=== PATIENT | female | born 1965 | race Caucasian/White ===

== ENCOUNTER 2016-03-01 10:01 | Inpatient (IN) ==
[2016-03-01] MEDS ORDERED: Ondansetron 4 MG/2 ML VIAL IVP PRN (15:04)
[2016-03-01] MEDS ORDERED: Naloxone 0.4 MG/ML INJ IVP PRN (15:04)
[2016-03-01] MEDS ORDERED: Polyethylene Glycol 3350 255 GM POWDER PO ONE (15:18)
[2016-03-01] MEDS ORDERED: *HR* LORazepam 2 MG/ML VIAL IVP PRN (15:19)
--- NOTE | 2016-03-01 15:28 | General Surg History&Physical ---
Date of Encounter: 03/01/16 Time of Encounter: 15:00 Assessment and Plan (1) Diverticulitis large intestine Current Visit: Yes Status: Acute The assessment and plan as outlined above was discussed with the patient and/or family members who expressed understanding and agreement. All questions were answered. CT scan with PO/IV contrast (abdomen/pelvis) Clear liquids IV antibiotics IV fluids Supportive care Check labs today Qualifiers: Diverticulitis bleeding: without bleeding Diverticulitis complication: without perforation or abscess Qualified Code(s): K57.32 - Diverticulitis of large intestine without perforation or abscess without bleeding (2) Hypertension Current Visit: Yes Status: Chronic The assessment and plan as outlined above was discussed with the patient and/or family members who expressed understanding and agreement. All questions were answered. Resume home regimen Will monitor and adjust as necessary Qualifiers: Hypertension type: essential hypertension Qualified Code(s): I10 - Essential (primary) hypertension (3) Anxiety Current Visit: Yes Status: Chronic The assessment and plan as outlined above was discussed with the patient and/or family members who expressed understanding and agreement. All questions were answered. Ativan as needed for anxiety supportive care (4) DVT prophylaxis Current Visit: Yes Status: Acute The assessment and plan as outlined above was discussed with the patient and/or family members who expressed understanding and agreement. All questions were answered. heparin 5,000 units SQ twice daily for DVT prophylaxis History of Present Illness Chief complaint: LLQ pain HPI: Ms. Gambino is a 50 year old female presented to the outpatient surgical office for a consultation with Dr. Joselito dumont. She reports LLQ abdominal pain. She states that this has been an intermittent issue for her for at least the past year. She reports greater than 5 episodes in 1 year and states that the current episode has been going on for at least 1 week. Her previous episode of LLQ pain was in December. She states that she took cipro and flagyl and that this did help her pain. She reports fevers/chills. She states that the pain is a 12 on a 0-10 pain scale. She has had a CT scan complete at [facility], which showed evidence of diverticulosis in the past. She denies any weight loss. She typically has a bowel movement daily but states she has been unable to have a bowel movement today. Admits to diarrhea the past few days without melena or hematochezia. Denies any nausea/vomiting. Denies any difficulty with urination. Denies any shortness of breath or chest pain. We will admit the patient for further work-up and evaluation. Past Med Surg Social Fam HX - Past Medical History Source: patient Medical history: cancer (skin- BCC on left thigh), hypertension, migraine, other (IBS, cervical stenosis) Psychiatric history: anxiety - Past Surgical History Surgical History: , orthopedic, other (right knee scope), other (C- section, BCC removed from left thigh) - Social History Smoking Status: Current every day smoker Packs per day: 1 Smokeless Tobacco Status: Yes Alcohol use: none Drug use: none Occupational status: employed Current living situation: Home - Independent Activity Level: Independent ambulation - Family History Mother Age at : 55 Cause of : leukemia Hx Family Cardiac Disorders: Yes Hx Family Cancer: Yes Review of Systems All systems PM: reviewed and no additional remarkable complaints except as stated (in the HPI) All systems PM: A 10-system review of systems was performed and is negative for pertinent findings except as documented above in the HPI. General Surgery Exam Initial Vital Signs Temp Pulse Resp BP Pulse Ox 98.1 F 72 14 147/89 97 03/01/16 14:55 03/01/16 14:55 03/01/16 14:55 03/01/16 14:55 03/01/16 14:55 - General physical appearance well developed, well nourished, no distress, moderate pain - Eyes normal ocular movement - ENT normal mucosa, atraumatic, normocephalic - Neck trachea midline - Respiratory normal expansion, normal respiratory effort, clear to auscultation - Cardiovascular Cardiovascular exam: Present: RRR, 15, 16 - Abdomen Abdomen general surgery: Present: bowel sounds present, soft, tender Abdominal Tenderness: Present: LLQ - Integumentary Integumentary general surgery: Present: warm and dry, no abnormal pigmentation - Neurologic Present: CN 2-12 grossly intact - Musculoskeletal Present: normal gait, normal posture - Psychiatric Psychiatric general surgery: Present: A&Ox3 Results - Labs All other labs normal. - Attending Attestation I examined this patient and my medical decision-making was reviewed with the SPEECH PATHOLOGY SUPERVISOR/PA/Advanced Practice Nurse/Resident Physician. I agree with the documented findings, disposition and treatment plan as described except to the extent set forth below.
[2016-03-01 15:57] LABS: Basophils # 0.1 K/mcL (0.0-0.2); Basophils % 0.8 %; Eosinophils # 0.1 K/mcL (0.0-0.6); Eosinophils % 1.3 %; Hematocrit 42.3 % (35.3-44.9); Immature Granulocytes % 0.5 % (0-4); Lymphocytes # 2.6 K/mcL (0.6-4.6); Lymphocytes % 33.4 %; Mean Corpuscular HGB Conc 33.1 g/dL (31.6-35.5); Mean Corpuscular Hemoglobin 30.4 pg (28.0-33.3); Mean Corpuscular Volume 91.8 fL (83.0-100.0); Monocytes # 0.6 K/mcL (0.0-1.3); Monocytes % 7.6 %; Neutrophils # 4.3 K/mcL (1.6-8.9); Platelet Count 367 K/mcL (140-400); Red Blood Count 4.61 M/mcL (3.82-4.97); Red Cell Distribution Width 13.3 % (11.5-14.5); Segmented Neutrophils % 56.4 %
[2016-03-01] MEDS: *HR* HYDROmorphone (PF) 1 MG/ML SYRINGE IVP PRN ×2 (15:57→20:41)
[2016-03-01] MEDS: 0.9 % Sodium Chloride 1,000 ML IVC SCH (15:58)
[2016-03-01] MEDS: Piperacillin/Tazobactam 3.375 GM in D5% in Water (Mini-Bag+) 100 ML IVPB SCH ×2 (15:59→23:50)
[2016-03-01 16:14] LABS: BUN/Creatinine Ratio 18 (6-26); Blood Urea Nitrogen 15 mg/dL (7-20); Carbon Dioxide 20 mEq/L (19-29); Chloride 110 mEq/L (98-109); Glucose 91 mg/dL (70-99); Osmolality,Calculated 284 (280-300); Potassium 4.4 mEq/L (3.5-4.5); Sodium 137 mEq/L (136-145); eGFR For African Americans > 60 (> 60); eGFR For Non-African Americans > 60 (> 60)
[2016-03-01] MEDS: Lisinopril 20 MG TABLET PO SCH ×2 (18:38→18:42)
[2016-03-01] MEDS: *HR* Heparin 5,000 UNIT/ML VIAL SQ SCH (18:39)
[2016-03-02] MEDS: *HR* Heparin 5,000 UNIT/ML VIAL SQ SCH (05:04)
[2016-03-02 07:11] VITALS: BP 108/61
[2016-03-02] MEDS: 0.9 % Sodium Chloride 1,000 ML IVC SCH (07:18)
[2016-03-02] MEDS: Lisinopril 20 MG TABLET PO SCH (07:41)
[2016-03-02] MEDS ORDERED: Pantoprazole 40 MG VIAL IVP SCH (09:00)
--- NOTE | 2016-03-02 10:08 | General Surgery Progress Note ---
Date of Encounter: 03/02/16 Time of Encounter: 09:45 - Assessment and Plan (1) Diverticulitis large intestine Current Visit: Yes Status: Acute Clear liquid diet Bowel prep today NPO after midnight Plan for Robotic assisted sigmoid resection with Dr. Yee 03/03/16 Supportive care and pain control Qualifiers: Diverticulitis bleeding: without bleeding Diverticulitis complication: without perforation or abscess Qualified Code(s): K57.32 - Diverticulitis of large intestine without perforation or abscess without bleeding (2) Hypertension Current Visit: Yes Status: Chronic controlled and normotensive continue home regimen Qualifiers: Hypertension type: essential hypertension Qualified Code(s): I10 - Essential (primary) hypertension (3) Anxiety Current Visit: Yes Status: Chronic Ativan prn for anxiety (4) DVT prophylaxis Current Visit: Yes Status: Acute heparin 5,000 units SQ twice daily for DVT prophylaxis Subjective Patient reports: still having pain, pain is less, tolerating liquids well, voiding w/o difficulty, flatus, bowel movement, afebrile Objective Vital Signs - Last 8 Hours Temp Pulse Resp BP Pulse Ox 03/02/16 07:00 97.9 F 75 18 108/61 97 03/02/16 04:23 98.2 F 72 16 105/69 96 Intake and Output 03/01/16 03/02/16 03/02/16 23:59 07:59 15:59 Intake Total 168 / 168 220 / 220 120 / 120 Output Total 550 / 550 600 / 600 Balance -382 / -382 -380 / -380 120 / 120 Intake: IV Fluids 168 / 168 100 / 100 0.9 % Sodium Chloride 1, 68 / 68 000 ML @ 75 mls/hr IVC . [id number] ISABELLA Rx#: [id number] Zosyn 3.375 GM In 100 / 100 100 / 100 Dextrose 5% (Minibag+) 100 ML 100 ML @ 25 mls/hr IVPB Q8HR ISABELLA Rx#: [id number] Oral 0 / 0 120 / 120 120 / 120 Output: Urine 550 / 550 600 / 600 - General physical appearance well developed, well nourished, no distress - Eyes normal ocular movement - ENT normal mucosa, atraumatic, normocephalic - Neck Neck exam: trachea midline - Respiratory normal expansion, normal respiratory effort, clear to auscultation - Cardiovascular Cardiovascular exam: Present: RRR - Abdomen Abdomen: Present: bowel sounds present, soft, tender (mildly) Abdominal Tenderness: LLQ, suprapubic - Integumentary no rash, no growths - Neurologic CN 2-12 grossly intact - Musculoskeletal normal gait, normal posture - Psychiatric oriented to time, oriented to person, oriented to place, speech is normal, memory intact - Labs 03/01/16 15:42 03/01/16 15:42 Diabetes panel 03/01/16 Range/Units 15:42 Sodium 137 (136-145) mEq/L Potassium 4.4 (3.5-4.5) mEq/L Chloride 110 H (98-109) mEq/L Carbon Dioxide 20 (19-29) mEq/L BUN 15 (7-20) mg/dL Creatinine 0.84 (0.57-1.11) mg/dL Glucose 91 (70-99) mg/dL Calcium 9.0 (8.6-10.8) mg/dL Calcium panel 03/01/16 Range/Units 15:42 Calcium 9.0 (8.6-10.8) mg/dL Pituitary panel 03/01/16 Range/Units 15:42 Sodium 137 (136-145) mEq/L Potassium 4.4 (3.5-4.5) mEq/L Chloride 110 H (98-109) mEq/L Carbon Dioxide 20 (19-29) mEq/L BUN 15 (7-20) mg/dL Creatinine 0.84 (0.57-1.11) mg/dL Glucose 91 (70-99) mg/dL Calcium 9.0 (8.6-10.8) mg/dL Adrenal panel 03/01/16 Range/Units 15:42 Sodium 137 (136-145) mEq/L Potassium 4.4 (3.5-4.5) mEq/L Chloride 110 H (98-109) mEq/L Carbon Dioxide 20 (19-29) mEq/L BUN 15 (7-20) mg/dL Creatinine 0.84 (0.57-1.11) mg/dL Glucose 91 (70-99) mg/dL Calcium 9.0 (8.6-10.8) mg/dL Consult Discharge Plan - Plan Referrals: Liza Bettencourt MD [Primary Care Provider] - - Attending Attestation I examined this patient and my medical decision-making was reviewed with the AIRLINE TICKET AGENT/PA/Advanced Practice Nurse/Resident Physician. I agree with the documented findings, disposition and treatment plan as described except to the extent set forth below.
--- NOTE | 2016-03-10 07:40 | Event Note ---
Date of Encounter: 03/02/16 Time of Encounter: 14:00 Pt removed her IV and left without signing any AMA papers.
== END 2016-03-02 11:20 | disposition left against medical advice (07) | DRG 392 ==
LOC: 3ANU
PROVIDERS: ADMIT Surgery; ATTEND Surgery

== ENCOUNTER 2016-03-05 11:37 | Inpatient (IN) ==
[2016-03-05] MEDS ORDERED: cefOXitin 2,000 MG in D5% in Water (Mini-Bag+) 100 ML IVPB ONE (12:16)
[2016-03-05] MEDS ORDERED: Albuterol 2.5 MG/3 ML NEBULIZER IH ONE (12:16)
[2016-03-05] MEDS ORDERED: Ringers Solution, Lactated 1,000 ML IVC SCH (12:30)
[2016-03-05] MEDS ORDERED: Metoclopramide 10 MG/2 ML VIAL IVP ONE (12:43)
[2016-03-05] MEDS ORDERED: *HR* HYDROmorphone (PF) 1 MG/ML SYRINGE IVP PRN ×2 (12:43→19:36)
[2016-03-05] MEDS ORDERED: *HR* Promethazine 25 MG/ML VIAL IVP PRN (12:43)
[2016-03-05] MEDS ORDERED: *HR* Labetalol 100 MG/20 ML MDV IVP PRN (12:43)
[2016-03-05] MEDS ORDERED: Famotidine 20 MG/2 ML VIAL IVP ONE (12:43)
[2016-03-05] MEDS ORDERED: Acetaminophen IV 1,000 MG/100 ML INFUS..BTL IVPB ONE (12:45)
[2016-03-05] MEDS ORDERED: Gabapentin 300 MG CAPSULE PO STA ×2 (12:45)
[2016-03-05] MEDS ORDERED: Lidocaine -MPF 2% 2 ML VIAL ONE (12:48)
[2016-03-05] MEDS ORDERED: *HR* Succinylcholine 200 MG/10 ML VIAL IVP ONE (12:48)
[2016-03-05] MEDS ORDERED: *HR* Propofol 200 MG/20 ML VIAL IVP ONE (12:48)
--- NOTE | 2016-03-05 12:48 | Anesthesia Evaluation PreOp ---
Date of Encounter: 03/05/16 Time of Encounter: 12:46 - Past History Planned Operation: Robotic Colonic/Sigmoid resection Cardiac History: HTN (maintained on Lisinopril, metoprolol) Pulmonary History: Smoker ( < 1ppd x 30yrs) PARTS COUNTERMAN History: Other (Anxiety/depression maintained on Xanax. 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 Cervical HNP C4-5) Other Medical History: Denies Any Significant HX, Renal (hx of kidney stones), GERD (maintained on Zantac, Bentyl. Hx of diverticulitis), Other (BAsal Cell Ca L-thigh) Anesthesia History: No Prior Anesthetic Complications, Past Anesthesia (R-knee scope, , BCC removed from outer L thigh), Problems (PONV) Alcohol Use: none Drug use: none Medications and Allergies Alprazolam [Xanax 0.5 MG Tablet] 0.5 mg PO TID PRN 03/01/16 [History] Dicyclomine HCl [Bentyl] 20 mg PO QID 03/01/16 [History] Gabapentin [Neurontin] 600 mg PO QID 03/01/16 [History] Lisinopril [Zestril] 20 mg PO QPM 03/01/16 [History] Metoprolol [Lopressor] 25 mg PO TID 03/01/16 [History] Oxycodone HCl/Acetaminophen [Percocet 10-325 mg Tablet] 1 tab PO BID PRN [History] Eletriptan HBr [Relpax] 40 mg PO DAILY PRN 03/05/16 [History] Ranitidine HCl [Zantac] 150 mg PO BID 03/05/16 [History] Allergies acetaminophen [From Vicodin] Adverse Reaction (Verified 03/05/16 12:31) Nausea hydrocodone [From Vicodin] Adverse Reaction (Verified 03/05/16 12:31) Nausea - Meds/Allergy Pre-op Review Medications Reviewed: Yes Allergies Reviewed: Yes Beta Blockers on Current Med List: Yes (Metoprolol) If Beta Blockers taken, Date/Time (Last Dose taken): 03/05/16 @ 0800 Anesthesia Results - Labs Laboratory Tests 03/01/16 03/01/16 15:42 15:42 WBC 7.7 Hgb 14.0 Hct 42.3 Plt Count 367 Sodium 137 Potassium 4.4 Chloride 110 H Carbon Dioxide 20 BUN 15 Creatinine 0.84 Est GFR (Non-Af Amer) > 60 - Imaging EKG: image reviewed (67bpm SR,) Anesthesia Exam O2 Sat Height 1.65 m Height 1.65 m Height 1.65 m Weight 87.09 kg Weight 87.09 kg Weight 87.09 kg O2 Sat by Pulse Oximetry 97 O2 Sat by Pulse Oximetry 97 Vital Signs Temp Pulse Resp BP Pulse Ox 98.8 F 67 18 121/73 97 03/05/16 12:04 03/05/16 12:04 03/05/16 12:04 03/05/16 12:04 03/05/16 12:04 Height: 5'5" Weight: 199# NPO (# of Hours): MNOc - HEENT Pupil (Motor): Pupils equal, EOMI Teeth: Normal (permanent partial that "does not come out") Oral Opening: Greater than 3 - PARTS COUNTERMAN LOC: Oriented PARTS COUNTERMAN Motor: Deficit RUE (RSD manifesting as weakness & pain), Deficit RLE PARTS COUNTERMAN Sensory: Deficit: RUE (RSD manifesting as weakness & pain), RLE - Cardiac Rhythm: Regular Murmur: None - Pulmonary Breath Sounds: bilateral Clear Respiratory Effort: Symmetrical Anesthesia Assess/Plan ASA Score: 3 (Smoker, Chronic Pain, Obesity, HTN) Modified Wells Scale for Level of Consciousness: Cooperative, oriented, and tranquil Anesthetic Plan: General Monitoring Plan: Standard Monitors Recovery Plan: PACU Anes Supervising Prov Stmt: Pt seen/evaluated, R&B Discussed, questions answered and consent obtained.Carole Calix MD
[2016-03-05] MEDS ORDERED: *HR* Midazolam HCl 2 MG/2 ML VIAL ONE (12:49)
[2016-03-05] MEDS ORDERED: *HR* FentaNYL (PF) 100 MCG/2 ML VIAL ONE (12:49)
[2016-03-05] MEDS ORDERED: *HR* Rocuronium Bromide 50 MG/5 ML VIAL ONE (12:52)
[2016-03-05] MEDS ORDERED: Lidocaine -MPF 4% 5 ML AMPUL ONE (12:53)
[2016-03-05] MEDS ORDERED: Scopolamine Patch 1.5 MG PATCH.TD72 TD STA (13:02)
[2016-03-05] MEDS ORDERED: CloNIDine Patch 0.1 MG PATCH (WEEKLY) TD SCH (13:15)
--- NOTE | 2016-03-05 13:39 | History & Physical Report ---
Date of Encounter: 03/05/16 Time of Encounter: 13:38 24 Hour HP Update - Instructions Instructions: If the History and Physical is less than 30 days old and was completed prior to A.M. admission and or procedure and has NOT been updated on calendar day of procedure please complete this update prior to performing procedure. - Update Patient reports changes in Medical Condition: No Changes in assessment/condition: No Changes in Medication: No Preop tests/diagnostics Reviewed: Yes Surgery Remains Indicated: Yes Consent for Planned Operative Procedure(s) Verified: Yes - Pre-Operative Checklist Preoperative Checklist Indicated: Yes Prophylactic Antibiotic Ordered: Yes Home Medications Include Beta Marian: No
[2016-03-05] MEDS ORDERED: Neostigmine Methylsulfate 3 MG/3 ML SYRINGE ONE (15:27)
[2016-03-05] MEDS ORDERED: *HR* HYDROmorphone 2 MG/ML SYRINGE ONE (16:14)
[2016-03-05] MEDS ORDERED: Ondansetron 4 MG/2 ML VIAL ONE (16:14)
--- NOTE | 2016-03-05 16:34 | Operative Note ---
Date of procedure: 03/05/16 Pre-op diagnosis: Chronic Diverticulitis Post-op diagnosis: same Procedure: Robotic sigmoid resection Anesthesia: BRAD Surgeon: Klever Yee Estimated blood loss (cc): 25 Specimen: Sigmoid colon Condition: stable Disposition: same day Procedure in Detail: After informed consent, patient taken operating room placed supine position. After adequate sedation anesthesia patient was placed in a lithotomy position. After proper timeout a 12 mm cannula site was placed right superior to the umbilicus. Pneumoperitoneum was greater. A 13 mm cannula was placed in right lower quadrant. 5 mm camera was placed in the right upper quadrant. An 8 mm cannula was placed in subxiphoid region followed by another 8 mm in the left lower quadrant. Patient was placed in a headdown position. The robot was docked over the patient's left hip. Small bowel swept out of the pelvis. Rectosigmoid colon was then grasped and retracted cephalad. The peritoneum was then scored level of the sacral promontory. The left ureter was identified and kept on harm's way. The inferior mesenteric artery was then taken with a vessel sealer. The lateral rectosigmoid stalks were taken down the vessel sealer. The dissection was carried out down to approximate 4 cm above the pelvic floor. Rectosigmoid colon was dissected free from the retro-pubic tubercle region. Once it was freed a 45 mm robotic Endo staplers fired across the rectum. Once it was retracted and area was demarcated on the sigmoid colon for transection. Indocyanine green was infused and we had excellent perfusion. A counterincision was made in the suprapubic region. Dissection carried down the anterior rectus sheath. The rectus muscles were then divided in the midline with Sveta clamp. Once they were split the rectosigmoid colon was delivered. Anil bowel clamps are used to place across the colon proximal and distal and transected. Allis clamps are placed on the bowel and then a pursestring suture device placed on the colon. 3-0 Prolene suture was passed. A pursestring sutures and created and a 29 mm EEA anvil was placed. Suture was tied and secured. Colon was then placed back in the pelvis. The stapler was passed through the anal canal and to the rectal stump and then the spear was placed through the staple line. The anvil was then connected secured and fired. There were 2 excellent donuts. A leak test revealed no leak. At that point the procedure was terminated. All incisions are closed with 0 Vicryl suture and 4-0 Vicryl suture. Marcaine was inserted in the Pfannenstiel incision. She tolerated the procedure well.
[2016-03-05] MEDS ORDERED: Naloxone 0.4 MG/ML INJ IVP PRN ×2 (16:36→19:36)
[2016-03-05] MEDS ORDERED: *HR* Morphine 30 MG/ 30 ML PCA IVC PRN (16:37)
--- NOTE | 2016-03-05 17:55 | Anesthesia Evaluation Post Op ---
Date of Encounter: 03/05/16 Time of Encounter: 17:53 - Vital Signs Vital Signs: Vital Signs/O2 Sat, Most Current Temp Pulse Resp BP Pulse Ox 97.0 F L 75 16 116/69 16 L 03/05/16 17:26 03/05/16 17:46 03/05/16 17:46 03/05/16 17:46 03/05/16 17:46 - Lungs Lungs: Clear Ascult./Percussion - Airway Airway: Non-obstructed - Cardiovascular Regular Rate (Patient spontaneously going in and out of bigeminy. Likely due to anesthetic. Ordered telemetry bed for observation. Dr Guevara notified.) - Mental Status Mental Status: Asleep with brisk response to light stimulation - Pain Pain Scale: 3 Pain Scale used: Numeric (1 - 10) - Nausea Vomiting Nausea Vomiting: Not Present - Hydration Hydration: NPO, Has not voided - Discharge PostOp Status: Transfer Patient to floor
[2016-03-05] MEDS ORDERED: ALPRAZolam 0.5 MG TABLET PO PRN (19:36)
[2016-03-05] MEDS ORDERED: (Eletriptan Hbr [Relpax] 40 MG) PO PRN (19:36)
[2016-03-05] MEDS ORDERED: *HR* OxyCODONE/APAP 5/325 TABLET PO PRN (19:36)
[2016-03-05] MEDS ORDERED: Acetaminophen 325 MG TABLET PO PRN (19:55)
[2016-03-06] MEDS: cefOXitin 2,000 MG in D5% in Water (Mini-Bag+) 100 ML IVPB SCH ×2 (00:21→07:47)
[2016-03-06 05:22] LABS: Basophils % 0.2 %; Hematocrit 37.6 % (35.3-44.9); Hemoglobin 12.5 g/dL (11.5-15.4); Immature Granulocytes % 0.5 % (0-4); Lymphocytes # 1.2 K/mcL (0.6-4.6); Lymphocytes % 10.8 %; Mean Corpuscular HGB Conc 33.2 g/dL (31.6-35.5); Mean Corpuscular Hemoglobin 30.5 pg (28.0-33.3); Mean Corpuscular Volume 91.7 fL (83.0-100.0); Monocytes # 0.8 K/mcL (0.0-1.3); Platelet Count 322 K/mcL (140-400); Red Cell Distribution Width 13.2 % (11.5-14.5); Segmented Neutrophils % 81.5 %
[2016-03-06 05:35] LABS: BUN/Creatinine Ratio 9 (6-26); Blood Urea Nitrogen 7 mg/dL (7-20); Calcium 8.5 mg/dL (8.6-10.8); Carbon Dioxide 19 mEq/L (19-29); Chloride 111 mEq/L (98-109); Glucose 134 mg/dL (70-99); Osmolality,Calculated 282 (280-300); Potassium 4.2 mEq/L (3.5-4.5); Sodium 136 mEq/L (136-145); eGFR For African Americans > 60 (> 60); eGFR For Non-African Americans > 60 (> 60)
--- NOTE | 2016-03-06 13:17 | General Surgery Progress Note ---
<Lisa Moffett - Last Filed: 03/06/16 13:13> Date of Encounter: 03/06/16 Time of Encounter: 13:13 - Assessment and Plan (1) S/P laparoscopic-assisted sigmoidectomy Current Visit: Yes Status: Acute POD #1 robotic assisted sigmoid resection due to chronic diverticulitis with Dr. Yee clear liquid diet pain control supportive care encourage ambulation (2) Hypertension Current Visit: No Status: Chronic stable continue home Zestril and Lopressor Qualifiers: Hypertension type: essential hypertension Qualified Code(s): I10 - Essential (primary) hypertension (3) Anxiety Current Visit: No Status: Chronic continue home Xanax (4) DVT prophylaxis Current Visit: No Status: Acute SCDs to bilateral LE when in bed Subjective Patient reports: still having pain, voiding w/o difficulty, no flatus, no bowel movement, afebrile, other (belching) Objective Vital Signs - Last 8 Hours Temp Pulse Resp BP Pulse Ox 03/06/16 10:45 98.1 F 77 16 145/87 97 03/06/16 07:22 97.8 F 86 18 126/78 97 Intake and Output 03/05/16 03/06/16 03/06/16 23:59 07:59 15:59 Intake Total 1000 / 1000 340 / 340 720 / 720 Output Total 175 / 175 395 / 395 0 / 0 Balance 825 / 825 -55 / -55 720 / 720 Intake: IV Fluids 1000 / 1000 100 / 100 Lactated Ringers 1,000 ML 1000 / 1000 @ 25 mls/hr IVC .Q24H ISABELLA Rx#:[id number] Mefoxin 2,000 MG In 100 / 100 Dextrose 5% (Minibag+) 100 ML 100 ML @ 200 mls/ hr IVPB Q8HR ISABELLA Rx#: [id number] Oral 240 / 240 720 / 720 Output: Urine 350 / 350 Estimated Blood Loss 25 / 25 Wound Drainage 150 / 150 45 / 45 0 / 0 Right Lower Abdomen 20 / 20 45 / 45 0 / 0 Other: Meal Breakfast # Voids 1 # Bowel Movements 0 0 Weight 87.2 kg Patient Weight 03/06/16 23:59 Weight 87.2 kg - General physical appearance well developed, well nourished, no distress - Eyes normal ocular movement - ENT normal mucosa, atraumatic, normocephalic - Neck Neck exam: trachea midline - Respiratory normal respiratory effort, clear to auscultation - Cardiovascular Cardiovascular exam: Present: RRR - Abdomen Abdomen: Present: bowel sounds present, soft, tender (expected post-op), wound ( MONICA drain to bulb suction with serosanguinous drainage) Abdominal Tenderness: diffusely - Incision Incision: Present: clean and dry - Integumentary no rash - Neurologic CN 2-12 grossly intact - Psychiatric oriented to time, oriented to person, oriented to place, speech is normal - Labs 03/06/16 05:13 03/06/16 05:13 Diabetes panel 03/06/16 Range/Units 05:13 Sodium 136 (136-145) mEq/L Potassium 4.2 (3.5-4.5) mEq/L Chloride 111 H (98-109) mEq/L Carbon Dioxide 19 (19-29) mEq/L BUN 7 (7-20) mg/dL Creatinine 0.74 (0.57-1.11) mg/dL Glucose 134 H (70-99) mg/dL Calcium 8.5 L (8.6-10.8) mg/dL Calcium panel 03/06/16 Range/Units 05:13 Calcium 8.5 L (8.6-10.8) mg/dL Pituitary panel 03/06/16 Range/Units 05:13 Sodium 136 (136-145) mEq/L Potassium 4.2 (3.5-4.5) mEq/L Chloride 111 H (98-109) mEq/L Carbon Dioxide 19 (19-29) mEq/L BUN 7 (7-20) mg/dL Creatinine 0.74 (0.57-1.11) mg/dL Glucose 134 H (70-99) mg/dL Calcium 8.5 L (8.6-10.8) mg/dL Adrenal panel 03/06/16 Range/Units 05:13 Sodium 136 (136-145) mEq/L Potassium 4.2 (3.5-4.5) mEq/L Chloride 111 H (98-109) mEq/L Carbon Dioxide 19 (19-29) mEq/L BUN 7 (7-20) mg/dL Creatinine 0.74 (0.57-1.11) mg/dL Glucose 134 H (70-99) mg/dL Calcium 8.5 L (8.6-10.8) mg/dL - VTE Documentation of Mechanical Device: Intermittent pneumatic compression device Consult Discharge Plan - Plan Referrals: Liza Bettencourt MD [Primary Care Provider] - <Jarad Guevara - Last Filed: 03/07/16 12:36> Objective Vital Signs - Last 8 Hours Temp Pulse Resp BP Pulse Ox 03/07/16 11:13 98.0 F 76 16 97/66 98 03/07/16 07:29 98.2 F 79 16 106/67 97 Intake and Output 03/06/16 03/07/16 03/07/16 23:59 07:59 15:59 Intake Total 1000 / 1000 0 / 0 720 / 720 Output Total 75 / 75 / 15 30 / 30 Balance 925 / 925 -15 / 15 690 / 690 Intake: Oral 1000 / 1000 0 / 0 720 / 720 Output: Wound Drainage 75 / 75 15 / 15 30 / 30 Right Lower Abdomen 75 / 75 / 30 30 Other: Meal Dinner Breakfast # Voids 3 1 1 # Bowel Movements 0 0 Weight 87.2 kg Patient Weight 03/07/16 23:59 Weight 87.2 kg - Labs 03/07/16 07:40 03/07/16 07:40 Diabetes panel 03/07/16 Range/Units 07:40 Sodium 138 (136-145) mEq/L Potassium 3.9 (3.5-4.5) mEq/L Chloride 112 H (98-109) mEq/L Carbon Dioxide 19 (19-29) mEq/L BUN 6 L (7-20) mg/dL Creatinine 0.76 (0.57-1.11) mg/dL Glucose 102 H (70-99) mg/dL Calcium 8.7 (8.6-10.8) mg/dL Calcium panel 03/07/16 Range/Units 07:40 Calcium 8.7 (8.6-10.8) mg/dL Pituitary panel 03/07/16 Range/Units 07:40 Sodium 138 (136-145) mEq/L Potassium 3.9 (3.5-4.5) mEq/L Chloride 112 H (98-109) mEq/L Carbon Dioxide 19 (19-29) mEq/L BUN 6 L (7-20) mg/dL Creatinine 0.76 (0.57-1.11) mg/dL Glucose 102 H (70-99) mg/dL Calcium 8.7 (8.6-10.8) mg/dL Adrenal panel 03/07/16 Range/Units 07:40 Sodium 138 (136-145) mEq/L Potassium 3.9 (3.5-4.5) mEq/L Chloride 112 H (98-109) mEq/L Carbon Dioxide 19 (19-29) mEq/L BUN 6 L (7-20) mg/dL Creatinine 0.76 (0.57-1.11) mg/dL Glucose 102 H (70-99) mg/dL Calcium 8.7 (8.6-10.8) mg/dL - Attending Attestation I examined this patient and my medical decision-making was reviewed with the SUPERVISOR ASBESTOS REMOVAL/PA/Advanced Practice Nurse/Resident Physician. I agree with the documented findings, disposition and treatment plan as described except to the extent set forth below. Jarad Guevara MD FACS
[2016-03-06] MEDS ORDERED: Lisinopril 20 MG TABLET PO SCH (18:00)
[2016-03-07 08:02] LABS: Basophils # 0.1 K/mcL (0.0-0.2); Basophils % 0.6 %; Eosinophils # 0.1 K/mcL (0.0-0.6); Eosinophils % 1.2 %; Hematocrit 36.4 % (35.3-44.9); Hemoglobin 11.9 g/dL (11.5-15.4); Immature Granulocytes % 0.5 % (0-4); Lymphocytes # 2.4 K/mcL (0.6-4.6); Lymphocytes % 30.1 %; Mean Corpuscular HGB Conc 32.7 g/dL (31.6-35.5); Mean Corpuscular Hemoglobin 30.7 pg (28.0-33.3); Mean Corpuscular Volume 93.8 fL (83.0-100.0); Mean Platelet Volume 10.4 fL (9.4-12.4); Monocytes # 0.7 K/mcL (0.0-1.3); Monocytes % 9.4 %; Neutrophils # 4.5 K/mcL (1.6-8.9); Platelet Count 310 K/mcL (140-400); Red Blood Count 3.88 M/mcL (3.82-4.97); Red Cell Distribution Width 13.6 % (11.5-14.5); Segmented Neutrophils % 58.2 %
[2016-03-07 08:15] LABS: BUN/Creatinine Ratio 8 (6-26); Blood Urea Nitrogen 6 mg/dL (7-20); Calcium 8.7 mg/dL (8.6-10.8); Carbon Dioxide 19 mEq/L (19-29); Chloride 112 mEq/L (98-109); Glucose 102 mg/dL (70-99); Osmolality,Calculated 284 (280-300); Potassium 3.9 mEq/L (3.5-4.5); Sodium 138 mEq/L (136-145); eGFR For African Americans > 60 (> 60); eGFR For Non-African Americans > 60 (> 60)
[2016-03-07 11:16] VITALS: BP 97/66
--- NOTE | 2016-03-07 14:03 | Discharge Summary ---
<KaciejaynadamionLisa estrada - Last Filed: 03/07/16 14:00> Date of Encounter: 03/07/16 Time of Encounter: 14:00 - Discharge Diagnosis (1) S/P laparoscopic-assisted sigmoidectomy Priority: Primary Status: Acute (2) Hypertension Priority: Secondary Status: Chronic Qualifiers: Hypertension type: essential hypertension Qualified Code(s): I10 - Essential (primary) hypertension (3) Anxiety Priority: Secondary Status: Chronic (4) DVT prophylaxis Priority: Secondary Status: Acute - Discharge Medications Prescriptions: OxyCODONE/APAP 10/325 [Percocet 10/325 MG] 1 each PO Q6HR PRN #29 tablet PRN Reason: Pain Docusate [Colace] 100 mg PO BID #28 capsule Home Medications: Alprazolam [Xanax 0.5 MG Tablet] 0.5 mg PO TID PRN 03/01/16 [History] Dicyclomine HCl [Bentyl] 20 mg PO QID 03/01/16 [History] Gabapentin [Neurontin] 600 mg PO QID 03/01/16 [History] Lisinopril [Zestril] 20 mg PO QPM 03/01/16 [History] Metoprolol [Lopressor] 25 mg PO TID 03/01/16 [History] Oxycodone HCl/Acetaminophen [Percocet 10-325 mg Tablet] 1 tab PO BID PRN [History] Eletriptan HBr [Relpax] 40 mg PO DAILY PRN 03/05/16 [History] Ranitidine HCl [Zantac] 150 mg PO BID 03/05/16 [History] Docusate [Colace] 100 mg PO BID #28 capsule 03/07/16 [Rx] OxyCODONE/APAP 10/325 [Percocet 10/325 MG] 1 each PO Q6HR PRN #29 tablet [Rx] Allergies/Adverse Reactions: Allergies acetaminophen [From Vicodin] Adverse Reaction (Verified 03/05/16 12:31) Nausea hydrocodone [From Vicodin] Adverse Reaction (Verified 03/05/16 12:31) Nausea General Surgery Exam Initial Vital Signs Temp Pulse Resp BP Pulse Ox 98.8 F 67 18 121/73 97 03/05/16 12:04 03/05/16 12:04 03/05/16 12:04 03/05/16 12:04 03/05/16 12:04 Date of admission: 03/05/16 18:03 Primary care physician: Liza Cage Discharging clinician: Lisa Moffett Anticipated date of discharge: 03/07/16 - Patient Status Disposition: Home, Self-Care Condition: Good Functional capacity at discharge: independent ambulation Overall status at discharge: patient is progressing back to baseline - Discharge Instructions Follow Up With: Klever Yee DO [Partnered Physician] - Additional Instructions: Do not take dressing off of drain site for 24 hrs. Wash your incision with soap and water. Do not soak in a bath tub. Keep incision clean and dry. Keep drain site covered with clean, dry gauze. Follow-up with Dr. Yee in 1 week. - Diet and Activity Activity: increase activity as tolerated Diet: advance to your usual diet - Hospital Course Hospital course: Ms. Gambino is a 50 year old female admitted for robotic assisted sigmoid resection due to chronic diverticulitis. She underwent the procedure well and was able to tolerate clear liquids post-op. She was up and walking the halls throughout her hospital stay. Her diet was advanced to regular diet on POD #2 and, as she also tolerated that well, she will be discharged home to continue healing. Her MONICA drain was pulled prior to discharge. - Time Spent with Patient Total time spent providing and/or coordinating discharge services: Labs on day of discharge: Labs from last 24 hours 03/07/16 03/07/16 07:40 07:40 WBC 7.8 RBC 3.88 Hgb 11.9 Hct 36.4 MCV 93.8 MCH 30.7 MCHC 32.7 RDW 13.6 Plt Count 310 MPV 10.4 Immature Gran % 0.5 Seg Neutrophils % 58.2 Lymphocytes % 30.1 Monocytes % 9.4 Eosinophils % 1.2 Basophils % 0.6 Neutrophils # 4.5 Lymphocytes # 2.4 Monocytes # 0.7 Eosinophils # 0.1 Basophils # 0.1 Sodium 138 Potassium 3.9 Chloride 112 H Carbon Dioxide 19 BUN 6 L Creatinine 0.76 Est GFR ( Amer) > 60 Est GFR (Non-Af Amer) > 60 BUN/Creatinine Ratio 8 Glucose 102 H Calculated Osmolality 284 Calcium 8.7 <Paola,Jarad T - Last Filed: 03/08/16 13:40> General Surgery Exam Initial Vital Signs Temp Pulse Resp BP Pulse Ox 98.8 F 67 18 121/73 97 03/05/16 12:04 03/05/16 12:04 03/05/16 12:04 03/05/16 12:04 03/05/16 12:04 Date of admission: 03/05/16 18:03 Primary care physician: Liza Cage - Hospital Course Hospital course: Ms. Gambino is a 50 year old female - Time Spent with Patient Total time spent providing and/or coordinating discharge services: - Attending Attestation I examined this patient and my medical decision-making was reviewed with the ACADEMIC ADMINISTRATOR/PA/Advanced Practice Nurse/Resident Physician. I agree with the documented findings, disposition and treatment plan as described except to the extent set forth below. Jarad Guevara MD FACS
--- NOTE | 2016-03-08 12:03 | Electrocardiograph Report ---
[facility]iology Test Date: 2016-03-05 Pat Name: MEERA Gambino Department: 106 Room: 3A56 Gender: F Web Weaver: [facility] : 1965 Requested By: Klever Yee Order Number: [id number] Reading MD: Farshad Thrasher DO Measurements Intervals [place] Rate: 67 P: 36 VT: 169 QRS: 28 QRSD: 79 T: 18 QT: 376 QTc: 391 Interpretive Statements Sinus rhythm Electronically Signed On 03-08-16 12:01:38 EST by Farshad Thrasher DO
== END 2016-03-07 14:48 | disposition home or self-care (01) | DRG 330 ==
LOC: SAMDAY 11:37 → 3ANU 18:03
PROVIDERS: ADMIT Surgery; ATTEND Surgery